=== PATIENT | male | born 2000 | race Hispanic/Latino ===

== ENCOUNTER 2025-04-17 14:42 | Emergency (ER) | payer OTHER ==
[~2025-04-17] VITALS: Ht 175.3 cm; Wt 107.2 kg
[2025-04-17 15:24] LABS: KETONE, URINE AUTO RFX NEGATIVE (NEGATIVE); LEUKOCYTE ESTERASE UR AUTO RFX NEGATIVE (NEGATIVE); MUCUS, URINE RFX SMALL (NEGATIVE); NITRITE, URINE AUTO RFX NEGATIVE (NEGATIVE); RBC, URINE AUTO RFX 0 /HPF (0-3); SQUAM EPITHELIAL CELL UR AURFX 0 /HPF (0-6); WBC, URINE AUTO RFX 0 /HPF (0-3)
[2025-04-17] MEDS: IBUPROFEN 400 MG TAB PO ONE (16:50)
[2025-04-17 16:57] LABS: GC DNA AMPLIFICATION NEGATIVE (NEGATIVE)
[2025-04-17] MEDS ORDERED: IBUP200C33 PO (18:24)
[2025-04-17 18:36] VITALS: BP 137/88; TEMP 97.9; O2SAT 99
== END 2025-04-17 18:37 | disposition home or self-care (01) ==
LOC: M ED 14:42
DX: N50.89 Other specified disorders of the male genital organs (principal); F17.200 Nicotine dependence, unspecified, uncomplicated; Z79.1 Long term (current) use of non-steroidal anti-inflammatories (NSAID)

== ENCOUNTER 2025-07-06 17:56 | Emergency (ER) | payer OTHER ==
[~2025-07-06] VITALS: Ht 175.3 cm; Wt 104.5 kg
[~2025-07-06 17:56] MED LIST: IBUP200C33 PO
[2025-07-06 17:59] VITALS: BP 143/88; TEMP 98.4; O2SAT 99
[2025-07-06] MEDS: NEOSPORIN OINT 0.9 GM PKT TOP ONE (18:45)
[2025-07-06] MEDS: LIDOCAINE 1% MDV 20 ML VIAL SC ONE (18:45)
== END 2025-07-06 19:28 | disposition home or self-care (01) ==
LOC: M ED 19:07
DX: S61.512A Laceration without foreign body of left wrist, initial encounter (principal); W26.0XXA Contact with knife, initial encounter; Y92.009 Unspecified place in unspecified non-institutional (private) residence as the place of occurrence of the external cause; Y93.89 Activity, other specified; Y99.9 Unspecified external cause status

== ENCOUNTER 2025-08-03 06:41 | Emergency (ER) | payer OTHER ==
[~2025-08-03] VITALS: Ht 175.3 cm; Wt 106.6 kg
[2025-08-03] MEDS: ACETAMINOPHEN 500 MG TAB PO ONE (07:50)
[2025-08-03 08:07] LABS: BASO # 0.0 10^3/uL (0.0-0.2); BASO % 0.3 % (0.0-1.0); EOS # 0.1 10^3/uL (0.0-0.5); EOS % 1.4 % (0.0-3.0); LYMPH # 1.3 10^3/uL (1.5-5.0); LYMPH % 20.5 % (24.0-44.0); MONO # 0.7 10^3/uL (0.0-0.8); MONO % 10.8 % (2.0-8.0); NEUTROPHILS # 4.3 10^3/uL (1.5-8.5); NEUTROPHILS % 66.7 % (36.0-66.0); PLATELET COUNT, AUTOMATED 137 10^3/uL (150-450)
[2025-08-03 08:34] LABS: CPK CREATINE PHOSPHOKINASE 160 U/L (46-171)
[2025-08-03 08:35] LABS: ALT/SGPT 73 U/L (7.0-40); AST/SGOT 32 U/L (<34); CALCIUM LEVEL 9.5 MG/DL (8.5-10.1); CARBON DIOXIDE LEVEL 28 MMOL/L (20-31); CHLORIDE LEVEL 98 MMOL/L (98-107); CK-MB VALUE MASS < 1.0 NG/ML (<3.6); CREATININE FOR GFR 1.05 MG/DL (0.70-1.30); GLOMERULAR FILTRATION RATE > 90.0 (>60); POTASSIUM SERUM 4.1 MMOL/L (3.5-5.1); SODIUM LEVEL 136 MMOL/L (136-145)
[2025-08-03] MEDS: IPRATROPIUM 0.5 MG/ALBUTEROL 2.5 MG INH SOL UD 3 ML NEB ONE (08:35)
[2025-08-03 09:10] VITALS: O2SAT 96
[2025-08-03] MEDS ORDERED: VENTAER INH (09:18)
[2025-08-03 09:30] VITALS: BP 152/78; TEMP 99.3
== END 2025-08-03 09:35 | disposition home or self-care (01) ==
LOC: M ED 06:41
DX: J09.X2 Influenza due to identified novel influenza A virus with other respiratory manifestations (principal); Z79.52 Long term (current) use of systemic steroids